=== PATIENT | female | born 1990 | race Caucasian/White ===

== ENCOUNTER 2017-11-27 18:19 | Inpatient (IN) | payer BC, OTHER ==
[~2017-11-27] VITALS: Ht 165.1 cm; Wt 51.7 kg
--- NOTE | 2017-11-27 21:30 | NUR ---
Pre-admission Assessment Patient is a 26-year old, female, seen at intake, AAOx4 and with no SOB noted. Patient with clear speech, appears flushed and intoxicated. Patient verbalized that she last injected Heroin 1 at 1930. Patient noted to be disheveled and is melancholic . Discussed with patient admission policies of the unit. Patient is coherent and able to respond to questions appropriatel. Pt is ambulatory with steady gait. Patient verbalized using mainly Heroin, Methamphetamine for the past 2 days only, Percocet one time only today and the last use of Percocet was 1 month ago. Patient also verbalized the she smokes Marijuana 0.5 gm daily for 2 months. Vital signs taken and as follows: FL=662/87, P=78, O2 sat on RA=97%, RR=16, T=98.4. Pt verbalized instructions and teachings regarding disposal of narcotic and other controlled home meds, unit protocols such as taking of vital signs Q4H and handling and disposal of contraband.
[2017-11-27] MEDS ORDERED: LOPERAMIDE HCL 2 MG CAPSULE PO PRN ×2 (22:15)
[2017-11-27] MEDS ORDERED: ONDANSETRON ODT 4 MG TAB.RAPDIS SL PRN (22:15)
[2017-11-27] MEDS ORDERED: CLONIDINE HCL 0.1 MG TABLET PO PRN (22:15)
[2017-11-27] MEDS ORDERED: MAGNESIUM HYDROXIDE 30 ML LIQUID UDC PO PRN (22:15)
[2017-11-27] MEDS ORDERED: HYDROXYZINE PAMOATE 25 MG CAPSULE PO PRN (22:15)
[2017-11-27] MEDS ORDERED: diphenhydrAMINE 50 MG CAPSULE PO PRN (22:15)
[2017-11-27] MEDS ORDERED: ACETAMINOPHEN 325 MG TABLET PO PRN (22:15)
[2017-11-27] MEDS ORDERED: MAG HYDROX/AL HYDROX/SIMETH 30 ML LIQUID UDC PO PRN (22:15)
[2017-11-27] MEDS ORDERED: BUPRENORPHINE HCL 2 MG TAB.SUBL SL PRN (22:15)
--- NOTE | 2017-11-27 22:15 | NUR ---
Admission note Pt is a 26 yo female, A+Ox4, presenting to [facility] for medically supervised Opiate withdrawal. Pt has also been using Marijuana and used Methamphetamine one time. Pt is 55 in height, and 114 LBS in weight. Pt has Allergies to Penicillin, is on Full code status, and on CCHO/Vegan diet. Substance use/History Pt states, I first started using drugs because I always seemed to get caught up in the wrong crowd. I also wanted to use it as a way to disconnect form everything. Its not that I wanted to but I just wanted to escape from everything. 1. Heroin IV Pt started using at the age of 22- Pt has been currently using 1gm/daily for the past 2 months Last dose was 0.6gm on 11-27-17 @1700 2. Percocet PO Pt started using at the age of 19- Pt has been currently using 30mg 1x/month for the past 2 months- Last dose was 30mg on 11-27-17 @1800 3. Marijuana Pt started using at the age of 16- Pt has been currently using 1gm/week for the past 2 months- Last dose was 0.2gm on 11-27-17 @1400 4. Methamphetamine by inhalation- Patient on used one time on 11-27-17 @1200 stating that she smoked some residue that was left in a pipe. Consequences of Substance Abuse Pt reports having no HX of Seizure, withdrawal induced delirium, withdrawal induced cardiac complications, overdose, nor blackouts. Pt expresses known consequences as, I have created a situation where it is hard for me to trust others and even harder for them to trust me, my job in particular. We have come under new management and I have been having outbursts and lashing out at work and I know that it is because of my drug use. I have been very emotionally volatile lately. My drug use has messed up relationships with friends family and significant others. I know that it effects my health especially since I am diabetic. I know that I needed to come in to treatment or else I would probably . Medical/Psychiatric conditions Pt has a primary care provider but cannot recall name at this time. 1. DM Type I- insulin dependent diagnosed since age 14 takes Basagal inulin QHS and Novolog ACHS depending on sliding scale. 2. Anxiety not formally diagnosed- no medications being taken for this condition. Psychiatric complications Pt has no HX of SI/SA/HI nor 5150 holds. Treatment History Pt reports spending 45 days @ [facility] detox in [place], [place] followed by 5.5 months @ [facility] followed by 6 months @ a sober living and continued sobriety for a total of 20 months from 2016- September 2017 until relapsing 2 months ago. This was the patients last time sober. Motivation Pt considers her Mother, Family and Boyfriend to be her support system. Pt states, I used to go to meeting all of the time but now since I have relapsed I have been embarrassed to go and tell me relapse story. I plan to go to treatment again after this detox. This time around I know that I have to go into it with a different mindset. I know that I have gotten sober in the past so I know that I am capable of doing it again. Pt appears moderately intoxicated but in stable condition. Pt has no apparent odor, appears well groomed, and clothing is in good condition. Pt is cooperative and compliant with all aspects of treatment. V/S WNL. Respirations even and unlabored. Will continue to monitor. Addendum: 11/28/17 at 0629 by SERGE FERREIRA LVN Basaglar insulin
[2017-11-27 22:42] LABS: *AMPHETAMINE, URINE POSITIVE (NEGATIVE); *BARBITURATE, URINE NEGATIVE (NEGATIVE); *CANNABINOID, URINE POSITIVE (NEGATIVE); *COCCAINE, URINE NEGATIVE (NEGATIVE); *OPIATE, URINE POSITIVE (NEGATIVE); *PHENCYCLIDINE SCREEN,URINE NEGATIVE (NEGATIVE)
[2017-11-27] MEDS ORDERED: DEXTROSE 50% 50 ML DISP.SYRIN IV PRN (23:00)
[2017-11-28] MEDS: BLOOD SUGAR DIAGNOSTIC 1 EACH STRIP VI SCH ×5 (00:20→21:08)
--- NOTE | 2017-11-28 00:30 | NUR ---
Blood Sugar and Insulin Refusal Patient's Blood Sugar was [id number] mg/dL. Patient refused insulin coverage of ordered Humulin R insulin. Per patient, she will speak with MD first because she is used to her own sliding of Novolog insulin. Per patient, she does not cover insulin with the said blood sugar value and she verbalized that she already injected herself with Basaglar 17 units SQ prior.
[2017-11-28 00:41] VITALS: BP 104/63
--- NOTE | 2017-11-28 00:41 | NUR ---
COWS Assessment COWS: 5. Pt noted with pulse 77, stuffy nose, stomach cramps, yawning, and anxiety. Respirations even and unlabored. Will continue to monitor.
[2017-11-28] MEDS ORDERED: HYDR28GE TP (01:42)
[2017-11-28] MEDS ORDERED: INSU100I26 SQ (01:42)
[2017-11-28] MEDS ORDERED: INSU3INS8 (01:42)
[2017-11-28 02:24] LABS: ALANINE AMINOTRANSFERASE 22 U/L (14-59); ALKALINE PHOSPHATASE 61 U/L (50-136); ASPARTATE AMINOTRANSFERASE 14 U/L (15-37); BILIRUBIN,TOTAL 0.6 mg/dL (0.2-1.0); CARBON DIOXIDE 33 mmol/L (21-32); CHLORIDE 102 mmol/L (98-107); CREATININE 0.7 mg/dL (0.6-1.3); GLUCOSE 189 mg/dL (74-106); MAGNESIUM 1.9 mg/dL (1.8-2.4); POTASSIUM 3.6 mmol/L (3.5-5.1); TOTAL PROTEIN, SERUM 6.8 g/dL (6.4-8.2); UREA NITROGEN, BLOOD 15 mg/dL (7-18)
[2017-11-28 02:31] LABS: THYROID STIMULATING HORMONE 0.671 mIU/mL (0.358-3.740)
[2017-11-28 02:45] LABS: BASOPHILS # (AUTO) 0.1 K/uL (0.0-8.0); BASOPHILS % (AUTO) 1.4 % (0.0-2.0); EOSINOPHILS # (AUTO) 0.2 K/uL (0.0-0.7); EOSINOPHILS % (AUTO) 2.7 % (0.0-7.0); HEMATOCRIT 38.1 % (31.2-41.9); HEMOGLOBIN 12.8 g/dL (10.9-14.3); MEAN CORPUSCULAR HEMOGLOBIN 30.1 uug (24.7-32.8); MEAN CORPUSCULAR HGB CONC 34 g/dL (32.3-35.6); MEAN CORPUSCULAR VOLUME 89.7 fL (75.5-95.3); MONOCYTES # (AUTO) 0.5 K/uL (2.0-10.0); MONOCYTES % (AUTO) 8.6 % (0.0-11.0); NEUTROPHILS # (AUTO) 3.3 K/uL (1.8-8.9); NEUTROPHILS % (AUTO) 54.3 % (38.5-71.5); PLATELET COUNT (AUTO) 222 K/uL (179-408); RED BLOOD CELL COUNT(AUTO) 4.25 MIL/uL (3.63-4.92)
[2017-11-28] MEDS ORDERED: LYSI500T PO (02:47)
[2017-11-28] MEDS ORDERED: [UNRECOGNIZED DRUG - CODE] PO (02:47)
[2017-11-28] MEDS ORDERED: MENT6OIN2 TP (02:47)
[2017-11-28] MEDS ORDERED: SUMA100T16 PO (02:47)
[2017-11-28] MEDS ORDERED: [UNRECOGNIZED DRUG - CODE] TP (02:47)
[2017-11-28 02:51] LABS: ETHANOL < 3 MG/DL (0-0)
--- NOTE | 2017-11-28 04:32 | NUR ---
V/S refused and COWS assessment deferred for sleep. Respirations even and unlabored. Will continue to monitor.
[2017-11-28 04:45] LABS: *URINE HCG, QUAL NEGATIVE (NEGATIVE)
--- NOTE | 2017-11-28 07:00 | NUR ---
End of shift note Newly admitted patient. Pt was continuously noted with anxiety, irritability, and fatigue. Pt remained in room for majority of shift except to get food from kitchen and to go smoke on smoking patio. Pt remained cooperative and compliant with all aspects of treatment. Pt was not given any PRN medications during shift. Pt is on PRN medications until further evaluation from MD. Pt slept for a total of 5 HRS. Last COWS: 5 @0041. Respirations even and unlabored. Will endorse to day shift nurse.
--- NOTE | 2017-11-28 07:40 | NUR ---
Start Of Shift Received 26 y/o F admitted last night 11/27/17 for medically supervised heroin withdrawal. empty bottles and snack wrappers on the counter and tables. Pt presents agitation, irritability, anxiety, restlessness, c/o generalized body aches, cold/hot flashes, chills, sweating, piloerection of the skin, pupil dilation. Encouraged pt to increase fluids as tolerated to facilitate in detox. Educated pt with plan of care and med regimen. Side rails upx2, bed in low position, and call light is within reach. Safety measures in place. Will continue to monitor.
--- NOTE | 2017-11-28 07:43 | NUR ---
Accucheck BS 43. Pt is a/ox4, orange juice given. notified. Will continue to monitor closely.
[2017-11-28 08:00] VITALS: BP 96/61
--- NOTE | 2017-11-28 08:30 | NUR ---
COWS 15 / PRN Pt presents agitation, irritability, anxiety, restlessness, c/o generalized body aches and back ache 7/10, cold/hot flashes, chills, sweating, stomach cramps, nausea, piloerection of the skin, pupil dilation, tremors are felt. Subutex 4 mg sl, robaxin 650 mg po, bentyl 20 mg po, ibuprofen 600 mg po, zofran 4mg sl, PRNS given. Will continue to monitor.
[2017-11-28] MEDS: IBUPROFEN 600 MG TABLET PO PRN (08:35)
[2017-11-28] MEDS: DICYCLOMINE HCL 20 MG TABLET PO PRN (08:35)
[2017-11-28] MEDS: METHOCARBAMOL 750 MG TABLET PO PRN (08:35)
--- NOTE | 2017-11-28 08:35 | NUR ---
PRN Bentyl 20 mg, robaxin 750 mg, zofran 4mg sl, subutex 4 mg sl PRNs given for pt presenting anxiety, agitation, irritability, generalized body aches and back ache 7/10, sweating, chills, cold/hot flashes, nausea, stomach cramps, and tremors are noted. Will continue to monitor and reassess.
[2017-11-28] MEDS ORDERED: TUBERCULIN,PURIF.PROT.DERIV. 5 TU/0.1 ML TEST ID ONE (09:00)
[2017-11-28] MEDS: MULTIVITAMINS,THERAPEUTIC TABLET PO SCH (09:16)
--- NOTE | 2017-11-28 09:35 | NUR ---
Reassessment Pt is laying in bed with eyes closed, asleep. Respirations even and unlabored. Safety measures in place. Will continue to monitor.
--- NOTE | 2017-11-28 12:00 | NUR ---
BS 120
[2017-11-28 12:30] VITALS: BP 108/72
[2017-11-28] MEDS ORDERED: SUMATRIPTAN SUCCINATE 50 MG PO PRN (12:30)
--- NOTE | 2017-11-28 12:30 | NUR ---
COWS 15 Pt is laying in bed, continues to present agitation, irritability, anxiety, restlessness, c/o generalized body aches and back ache, cold/hot flashes, chills, sweating, stomach cramps, nausea, piloerection of the skin, pupil dilation, tremors are felt. Refuses prns at this time.
[2017-11-28] MEDS ORDERED: 4 DAY TAPER BUPRENORPHINE -SERENITY PROTOCOL SL PRN (12:45)
[2017-11-28] MEDS ORDERED: SUMATRIPTAN SUCCINATE 50 MG TABLET PO PRN (13:30)
[2017-11-28] MEDS: BUPRENORPHINE HCL 2 MG TAB.SUBL SL SCH ×2 (15:23→21:08)
[2017-11-28 16:00] VITALS: BP 104/62
--- NOTE | 2017-11-28 16:00 | NUR ---
COWS 15 Pt continues to present agitation, irritability, anxiety, restlessness, c/o generalized body aches and back ache, cold/hot flashes, chills, sweating, stomach cramps, nausea, piloerection of the skin, pupil dilation, tremors noted. Scheduled subutex sl given and tolerated well. Will continue to monitor.
--- NOTE | 2017-11-28 16:30 | NUR ---
BS 103
--- NOTE | 2017-11-28 19:40 | NUR ---
End Of Shift Pt has been isolative in room throughout shift, in and out and sleep. Pt is highly irritable, agitated, anxious, restless. Last COWS 15. Bentyl, robaxin, zofran, ibuprofen, subutex PRNS given during shift and were effective. Pt 0730 BS were 43 and was given orange juice; 1130 BS 120, and 1640 BS 103. Safety measures in place.
[2017-11-28 20:00] VITALS: BP 105/71
--- NOTE | 2017-11-28 20:00 | NUR ---
Start of Shift Note Received a 26 y/o female px, admitted for medically supervised withdrawal from Opiates. She also used marijuana and methamphetamine. Px was placed on 4 day Subutex taper started today, 11/28/2017. Px has DM type 1. Last reported COWS 15 by AM shift nurse. During the rounds at 1999, zully is awake on bed in left side lying position. She appears anxious and depressed. She is disheveled, with long finger nails. Px has flat affect and poor eye contact. Px has only 1 bottle of water inside her room. She states that her anxiety is 7/10, has H/A of 6/10, stomach cramps. Px yawns at times and has piloerection. Bed is on the lowest position, side rails up 2x and call light within reach. Well continue to monitor
--- NOTE | 2017-11-28 20:00 | NUR ---
COWS 12 Upon assessment, She appears anxious and depressed. She states that her anxiety is 7/10, has H/A of 6/10, stomach cramps. Px yawns at times and has piloerection. AK= 60. will continue to monitor
--- NOTE | 2017-11-28 21:00 | NUR ---
Accucheck BG= 208 mg/dl. 4 "u" of Humulin R given SQ per sliding scale.
--- NOTE | 2017-11-28 21:07 | NUR ---
PRN Tylenol Px received 650 mg PO of Tylenol for H/A of 08/16. will continue to monitor
[2017-11-28] MEDS: INSULIN REGULAR, HUMAN 300 UNIT/3 ML VIAL SQ PRN (21:11)
[2017-11-28] MEDS: BASAGLAR KWIKPEN SQ SCH (21:12)
--- NOTE | 2017-11-28 22:10 | NUR ---
PRN Tylenol reassessment Px states that her H/A improved to 2-3/10. will continue to monitor
[2017-11-29] VITALS: BP 110/70
--- NOTE | 2017-11-29 | NUR ---
COWS 12 Upon assessment, zully is still awake and appears anxious and depressed. She states that her anxiety is still 7/10, stomach cramps. Px yawns at times and has piloerection. will continue to monitor
--- NOTE | 2017-11-29 01:50 | NUR ---
COMMUNICATION/CRITICAL LAB Patient woke up around 0145 complaining of irritability and dry mouth stating, "I feel like my blood sugar is high, can we check it?" One-time order for Accu-check result: 524mg/dL. notified; ordered to give Humulin R 10 units one-time. Addendum: 11/30/17 at 0320 by NATALIIA INFANTE LVN WRONG DATE, CORRECT DATE 11/30/17
[2017-11-29 04:00] VITALS: BP 99/66
--- NOTE | 2017-11-29 04:00 | NUR ---
COWS deferred COWS deferred due to the px is asleep, to assess if the px is awake per doctor's order. will continue to monitor
--- NOTE | 2017-11-29 07:05 | NUR ---
End of Shift Note During the shift at 2100, BG= 208 mg/dl. Px received Humulin R 4 u per sliding scale. At 2106, she received Tylenol 650 mg PO for H/A of 08/16. It was effective. Oral intake of 800 ml, voided 2x, No BM. Px slept for 6 hours. Last COWS 12. Bed on lowest position, side rails up 2x, and call light within reach. Px endorsed to AM shift nurse.
--- NOTE | 2017-11-29 07:20 | NUR ---
Start of Shift Last COWS 12 at 2400. Pt on 4 day Subutex taper. Pt guarded, flat affect, and depressed mood. Pt withdrawal symptoms include nausea, head ache, body aches, chills, fatigue, anhedonia, decreased appetite, dysphoria, warm skin to touch, and nausea. Pt slept 6 hours last night. Encouraged Pt to attend group therapy sessions to identify positive coping skills to maintain sobriety. Bed in lowest position. Side rails up x2. Call light functioning and within reach. All needs attended and met. Will continue to monitor for withdrawal symptoms.
[2017-11-29] MEDS: BLOOD SUGAR DIAGNOSTIC 1 EACH STRIP VI SCH ×4 (07:37→20:50)
[2017-11-29] MEDS: INSULIN REGULAR, HUMAN 300 UNIT/3 ML VIAL SQ PRN ×3 (07:38→16:47)
--- NOTE | 2017-11-29 07:40 | NUR ---
Pt had diabetes mellitus type I. AM blood glucose reading 43. Administered 300 ml orange juice with one packet of sugar. Charge nurse notified. Will recheck blood glucose in 30 minutes. Addendum: 11/29/17 at 0903 by Caro Arellano RN Pt has no symptoms of low blood glucose.
[2017-11-29 08:00] VITALS: BP 99/69
--- NOTE | 2017-11-29 08:00 | NUR ---
COWS 13- Pt withdrawal symptoms include nausea, head ache #5/10, body aches, chills, fatigue, anhedonia, poor appetite, dysphoria, disheveled, and odorous. Addendum: 11/29/17 at 1043 by Caro Arellano RN Pt also has moderate anxiety
[2017-11-29] MEDS ORDERED: BLOOD SUGAR DIAGNOSTIC 1 EACH STRIP VI ONE (08:30)
--- NOTE | 2017-11-29 08:30 | NUR ---
Reasses blood glucose now 118. Pt has no symptoms of low blood glucose.
[2017-11-29] MEDS: MULTIVITAMINS,THERAPEUTIC TABLET PO SCH (08:56)
[2017-11-29] MEDS: METHOCARBAMOL 750 MG TABLET PO PRN (08:56)
[2017-11-29] MEDS: IBUPROFEN 600 MG TABLET PO PRN ×2 (08:56→20:50)
[2017-11-29] MEDS ORDERED: BUPRENORPHINE HCL 2 MG TAB.SUBL SL SCH (09:00)
--- NOTE | 2017-11-29 09:03 | NUR ---
PRN ZOFRAN 4 MG SL FOR NAUSEA, NO EMESIS PRN IBUPROFEN 600 MG PO FOR HEADACHE #5/10. PRN ROBAXIN 750 MG PO FOR MODERATE BODY ACHES.
--- NOTE | 2017-11-29 10:00 | NUR ---
Reassess Zofran- Pt reports nausea resolved and she is able to eat snacks Reassess Ibuprofen- Pt reports headache #3/10 and tolerable. Reassess Robaxin- Pt reports body aches improved.
[2017-11-29 12:00] VITALS: BP 98/49
--- NOTE | 2017-11-29 12:05 | NUR ---
COWS 12- Pt withdrawal symptoms include head ache #3/10, minimal nausea, anxiety, moderate body aches, malaise, chills, poor appetite, she is only eating snacks, anhedonia, dysphoria, disheveled, and odorous. Room is cluttered with wrappers, empty water bottles, clothes and used linens. Drinks and food spilled on floor, in her bed and on her tray
--- NOTE | 2017-11-29 14:24 | NUR ---
Therapist prompted client to attend group therapy.
[2017-11-29] MEDS: BUPRENORPHINE HCL 2 MG TAB.SUBL SL SCH ×2 (14:41→20:50)
[2017-11-29] MEDS ORDERED: INSULIN REGULAR, HUMAN 300 UNIT/3 ML VIAL SQ PRN (15:45)
[2017-11-29 16:18] VITALS: BP 98/62
--- NOTE | 2017-11-29 16:19 | NUR ---
COWS 13- Pt withdrawal symptoms include moderate anxiety, nasal congestion, generalized body aches, malaise, chills, poor appetite, , her affect is flat, anhedonia, dysphoria and depressed mood. She remains disheveled, and odorous. Room is cluttered with wrappers and empty water bottles.
--- NOTE | 2017-11-29 18:29 | NUR ---
End of Shift Last COWS 13 at 1600. Pt on 4 day Subutex taper. Pt affect is guarded, anhedonia, dysphoria ,flat, and depressed mood. Pt withdrawal symptoms include nausea, head ache, generalized body aches, sweats, moist skin, chills, malaise, fine tremors, poor appetite, and intermittent nausea. Room is cluttered with wrappers and empty water bottles. Drinks and food spilled on floor, in her bed and on her tray. Pt is type I diabetic. 0730 blood glucose low at 43. Treated with OJ and sugar. Afternoon and PM blood glucose elevated and managed with insulin per slide scale. PRN given today; Zofran, Ibuprofen, Robaxin. Encouraged Pt to attend group therapy sessions to identify positive coping skills to maintain sobriety. Pt was not well enough to participate in group therapy today. PO Fluids 1000 ml, Voids x3, no BM. Fall and Seizure Precautions. Bed in lowest position. Side rails up x2. Call light functioning and within reach. All needs attended and met. Will continue to monitor for withdrawal symptoms. Endorsed to PM shift.
--- NOTE | 2017-11-29 19:03 | NUR ---
START OF SHIFT Patient is a 26-year-old female admitted on 11/27/17 for opiate withdrawal. Patient is currently on a 4-day Subutex taper, tolerating well; today is second day of taper, will end on 12/01/17. Patients last COWS was 13 per endorsement. Patient received the following PRN medications today: Zofran SL, Motrin, and Robaxin. PRNs were noted to be effective. Upon assessment, patient appears depressed and annoyed. Patient is alert and oriented x4, complaining of headache stating, earlier I felt like my sugar was low, now I have a headache. When asked about group attendance, patient replied, Martha been requesting my make-up and shampoo since I got here and no one has brought it to me. I havent even gone down to smoke because I dont feel comfortable without my belongings. 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 Per endorsement, patient did not eat dinner. When asked, patient stated, I didnt eat it because it was soggy and gross. SN encouraged patient to verbalize any requests for meals, within reason, but patient stated, I dont want to complain, Im trying to be grateful. Im vegan, I know there probably arent many options for me. SN encouraged patient to continue with oral fluids and snacks. Patient is on fall and seizure precautions with past seizure history. Safety measures in place, side rails up x2, bed locked in low position, call light within reach. Will continue to monitor.
[2017-11-29 20:00] VITALS: BP 102/61
--- NOTE | 2017-11-29 20:00 | NUR ---
COWS 14 Patient is visibly agitated and anxious at this time. Patient reports chills, sweats, intermittent nausea, and piloerection. Current COWS score is 14.
--- NOTE | 2017-11-29 20:50 | NUR ---
PRN MOTRIN, HS BASAGLAR NOT GIVEN Patient reports headache from feeling low blood sugar; PRN Motrin 600mg given PO. Bedtime dose of Basaglar held since patient did not eat dinner; charge nurse Janet notified. Accu-check at 2049 result: 77mg/dL. No regular insulin given per sliding scale. Safety measures in place, side rails up x2, bed locked in low position, call light within reach. Will monitor for effectiveness of PRN med.
[2017-11-29] MEDS: BASAGLAR KWIKPEN SQ SCH (20:57)
--- NOTE | 2017-11-29 21:50 | NUR ---
PRN MOTRIN REASSESSMENT Patient reports that headache has improved; PRN Motrin effective. Safety measures in place, side rails up x2, bed locked in low position, call light within reach. Will continue to monitor.
[2017-11-30] VITALS: BP 98/56
--- NOTE | 2017-11-30 | NUR ---
COWS DEFERRED COWS deferred at this time due to patient sleeping; to be assessed and scored while patient is awake. Safety measures in place, side rails up x2, bed locked in low position, call light within reach. Will continue to monitor.
[2017-11-30] MEDS ORDERED: BLOOD SUGAR DIAGNOSTIC 1 EACH STRIP VI ONE ×3 (01:45→06:00)
--- NOTE | 2017-11-30 01:45 | NUR ---
COWS 14 Patient woke up feeling irritable, anxious, restless, intermittent nausea, and on and off piloerection. Current COWS is 14.
--- NOTE | 2017-11-30 01:50 | NUR ---
MD COMMUNICATION/CRITICAL LAB Patient woke up around 0145 complaining of irritability and dry mouth stating, "I feel like my blood sugar is high, can we check it?" One-time order for Accu-check result: 524mg/dL. MD notified; MD ordered to give Humulin R 10 units one-time.
[2017-11-30] MEDS ORDERED: INSULIN REGULAR, HUMAN 300 UNIT/3 ML VIAL SQ ONE (02:05)
--- NOTE | 2017-11-30 03:32 | NUR ---
BLOOD SUGAR 407mg/dL Accu-check result at 0323: 414mg/dL Accu-check result at 0332: 407mg/dL Vitals within normal limits, respirations even and unlabored. Safety measures in place, side rails up x2, bed locked in low position, call light within reach. Will continue to monitor.
[2017-11-30 04:00] VITALS: BP 102/64
--- NOTE | 2017-11-30 04:00 | NUR ---
COWS DEFERRED COWS deferred at this time due to patient sleeping; to be assessed and scored while patient is awake. Respirations even and unlabored. Safety measures in place, side rails up x2, bed locked in low position, call light within reach. Will continue to monitor.
--- NOTE | 2017-11-30 06:10 | NUR ---
BLOOD SUGAR 76mg/dL Patient sleeping at this time. Accu-check result: 76mg/dL. Respirations even and unlabored, safety measures in place, call light within reach. Patient decided to drink 8oz of orange juice upon hearing that her BS was 76. Will continue to monitor.
--- NOTE | 2017-11-30 07:05 | NUR ---
END OF SHIFT Patient is a 26-year-old female admitted on 11/27/17 for opiate withdrawal. Patient is currently on a 4-day Subutex taper, tolerating well; today will be day 3 of taper, scheduled to end on 12/01/17. Patients last COWS was 14. Patient did not eat dinner last night and refused snacks at the start of shift. Per MD order regarding kwikpen long-acting insulin, SN held HS dose. However, patient later had a snack before going to bed. Around 0140 patient woke complaining of feeling that she had elevated blood glucose. One-time Accu-check at 0148 resulted in 524mg/dL critical value; MD was notified and pop sup was later notified. Per MD order, 10 units of regular insulin was subcutaneous at 0224. Blood glucose was re-checked at 0332, result: 407mg/dL. Blood sugar checked again at 0610, result: 76mg/dL. Patient received only PRN Motrin last night for headache, noted to be effective. Patient slept for 6 hours, total intake of 1,400mL, void x3, stool x0. Patient is on fall and seizure precautions with past seizure history. Safety measures in place, side rails up x2, bed locked in low position, call light within reach. Will endorse to day shift.
[2017-11-30] MEDS: BLOOD SUGAR DIAGNOSTIC 1 EACH STRIP VI SCH ×4 (07:30→21:58)
--- NOTE | 2017-11-30 07:30 | NUR ---
BS 74.
--- NOTE | 2017-11-30 07:59 | NUR ---
Start Of Shift / COWS 14 Received 26 y/o F admitted on 11/27/17 for medically supervised heroin withdrawal. Pt continues on a 4 day subutex taper that started on 11/28/17 and tolerating well. Pt has a flat affect, drowsy, presents agitation, irritability, c/o anxiety, restlessness, generalized body aches and back ache 6/10, cold/hot flashes, chills, sweating, intermittent piloerection of the skin, pupil larger than normal and tremors are noted. Encouraged pt to increase fluids as tolerated to facilitate in detox. Educated pt with plan of care and med regimen. Side rails upx2, bed in low position, and call light is within reach. Safety measures in place. Will continue to monitor.
[2017-11-30 08:30] VITALS: BP 96/62
[2017-11-30] MEDS: BUPRENORPHINE HCL 2 MG TAB.SUBL SL SCH ×3 (09:06→21:55)
[2017-11-30] MEDS: METHOCARBAMOL 750 MG TABLET PO PRN (09:06)
[2017-11-30] MEDS: DICYCLOMINE HCL 20 MG TABLET PO PRN (09:06)
[2017-11-30] MEDS: MULTIVITAMINS,THERAPEUTIC TABLET PO SCH (09:06)
--- NOTE | 2017-11-30 09:06 | NUR ---
PRN Robaxin 750 mg po and bentyl 20 mg po prns given for stomach cramps, muscle cramps, generalized body aches.
--- NOTE | 2017-11-30 10:06 | NUR ---
Reassessment Pt appears calm, and is laying in bed, tv on, with eyes closed, appears to be sleeping. Safety measures in place.
--- NOTE | 2017-11-30 12:00 | NUR ---
BS 238; 4 units of humulin R given per sliding scale.
--- NOTE | 2017-11-30 12:00 | NUR ---
COWS 14 Pt is isolative in room, states she won't come out until her make-up is brought up from storage. Pt is agitated, irritable, c/o anxiety, restlessness, generalized body aches and back ache 4/10, intermittent cold/hot flashes, chills, sweating, intermittent piloerection of the skin, pupils larger than normal and tremors are noted.
[2017-11-30] MEDS: INSULIN REGULAR, HUMAN 300 UNIT/3 ML VIAL SQ PRN ×2 (12:38→17:42)
[2017-11-30 12:41] VITALS: BP 90/61
[2017-11-30 13:06] LABS: HEPATITIS B SURFACE AG Negative (Negative)
--- NOTE | 2017-11-30 14:08 | NUR ---
Therapist prompted client to attend all group therapy sessions.
--- NOTE | 2017-11-30 16:00 | NUR ---
COWS 14 Pt continues to be isolative in room, agitated, irritable, c/o anxiety, restlessness, generalized body aches and back ache 4/10, intermittent cold/hot flashes, chills, sweating, intermittent piloerection of the skin, pupils larger than normal and tremors are noted. Subutex was given and tolerated well. Will continue to monitor.
[2017-11-30 16:30] VITALS: BP 97/61
--- NOTE | 2017-11-30 17:30 | NUR ---
BS 216; 4 units of humulin R given.
--- NOTE | 2017-11-30 19:17 | NUR ---
End Of Shift Pt has been isolative in room throughout shift. Pt has been irritable, upset and agitated mostly for not getting to have her makeup bag on unit. BS 72 @0730, BS 238 @1130 4 units humulin R given per sliding scale, BS 216 @1630 4 units humulin R given. Last COWS 13 @1600. Robaxin and bentyl prn given and effective. Pt is a diabetic vegan; pt refused to consume meals yesterday diet consult has been ordered. Pt consumed 75/50/50% of meals. Safety measures in place.
--- NOTE | 2017-11-30 19:30 | NUR ---
START OF SHIFT Received 26 year old female patient admitted on 11/27/17 for Opiate withdrawal. Pt is alert and oriented x4. She has PMHx of DM type 1. Pt noted to be disheveled, anxious, agitated, irritable, angry, and restless, with poor eye contact and withdrawn behavior. She complains of not receiving her toiletries and speaks in an angry tone. She is currently receiving a 4 day Subutex taper and tolerating well. Per endorsement, last BS at 1600 was 216. Pt received 4 units. She received PRN Robaxin and Bentyl. Last COWS:13 at 1600. Breathing is even and unlabored, safety measures in place. Will continue to monitor.
[2017-11-30 20:00] VITALS: BP 92/60
--- NOTE | 2017-11-30 20:00 | NUR ---
COWS Pt complains of anxiety, agitation, irritability, restlessness,and body aches. COWS:13 prior to 2100 medication administration. Safety measures in place. Will continue to monitor.
--- NOTE | 2017-11-30 21:58 | NUR ---
ACCU CHECK Pt's blood emqxy=953. Pt with no sliding scale for bedtime. Pt stated " I wouldn't give myself any insulin with this blood sugar" Dr. Morales notified with no new orders. Pt denies signs and symptoms of hypo/hyperglycemia. Will continue to monitor.
[2017-11-30] MEDS: BASAGLAR KWIKPEN SQ SCH (22:00)
--- NOTE | 2017-12-01 | NUR ---
VITALS REFUSED, COWS DEFERRED 0000 vitals refused. COWS deferred d/t pt lying in bed with eyes closed noted to be asleep. Breathing is even and unlabored, safety measures in place. Will continue to monitor.
--- NOTE | 2017-12-01 04:00 | NUR ---
VITALS REFUSED, COWS DEFERRED 0400 vitals refused. COWS deferred d/t pt lying in bed with eyes closed noted to be asleep. Breathing is even and unlabored, safety measures in place. Will continue to monitor.
--- NOTE | 2017-12-01 07:14 | NUR ---
END OF SHIFT Pt is a 26 year old female patient admitted on 11/27/17 for Opiate withdrawal. She remains alert and oriented x4. She has PMHx of DM type 1. Pt was noted to be disheveled, anxious, agitated, irritable, angry, emotional and restless during the shift. She continues on a 4 day Subutex taper and tolerating well. She did not receive or request PRN medications. She slept a total of 7 hrs, Intake: 500 mL, Void: x1, BM:0, Last COWS:14 at 2000. Last Accu check was 245. Breathing is even and unlabored, safety measures in place. Endorsed to AM shift.
[2017-12-01] MEDS: BLOOD SUGAR DIAGNOSTIC 1 EACH STRIP VI SCH ×4 (07:54→21:46)
--- NOTE | 2017-12-01 07:58 | NUR ---
START OF SHIFT NOTE Received report from night nurse, 26 year old female admitted for Heroin withdrawal and continues with Subutex taper tolerating well. Patient has a PMH of DM type 1. Per endorsement patient received no PRN'S last blood sugar was 245mg/dL, slept for 7 hours. Received patient asleep responsive to verbal and tactile stimuli. Breathing normal no SOB noted. Skin intact warm and dry to touch. All safety measures in place. Will cont to monitor.
[2017-12-01 08:00] VITALS: BP 115/74
[2017-12-01] MEDS: MULTIVITAMINS,THERAPEUTIC TABLET PO SCH (08:02)
--- NOTE | 2017-12-01 08:03 | NUR ---
COWS ASSESSMENT COWS score noted 13, patient presented with poor eye contact, anxiety, agitation, fatigue, patient was given her scheduled medications. Will cont to monitor.
[2017-12-01] MEDS: INSULIN REGULAR, HUMAN 300 UNIT/3 ML VIAL SQ PRN ×3 (08:47→17:21)
--- NOTE | 2017-12-01 08:47 | NUR ---
BLOOD SUGAR RESULTS Patient BS noted 286mg/dl, 6 units of regular insulin was given as per sliding scale. Will cont to monitor.
[2017-12-01] MEDS ORDERED: BUPRENORPHINE HCL 2 MG TAB.SUBL SL SCH (09:00)
--- NOTE | 2017-12-01 11:57 | NUR ---
BLOOD SUGAR RESULTS Patient BS noted 236mg/dl, 4 units of regular insulin was given as per sliding scale. Will cont to monitor.
[2017-12-01 12:00] VITALS: BP 104/62
--- NOTE | 2017-12-01 12:00 | NUR ---
COWS ASSESSMENT COWS score noted 10, patient continues to presented s/s of anxiety, agitation, fatigue, encourage patient to attend groups activities for distraction, patient verbalized understanding. Will cont to monitor.
--- NOTE | 2017-12-01 14:35 | NUR ---
Therapist prompted client to attend all group therapy sessions.
[2017-12-01] MEDS ORDERED: CLON0.1T14 PO (15:10)
[2017-12-01] MEDS ORDERED: DICY20TA28 PO (15:10)
[2017-12-01] MEDS ORDERED: METH-406 PO (15:10)
[2017-12-01] MEDS ORDERED: HYDR-3895 PO (15:10)
[2017-12-01 16:00] VITALS: BP 117/74
--- NOTE | 2017-12-01 16:00 | NUR ---
COWS ASSESSMENT COWS score noted 6, patient continues to presented s/s upset mood angry affect, anxiety, agitation, encourage patient to attend groups activities for distraction, patient verbalized understanding. Will cont to monitor.
--- NOTE | 2017-12-01 17:17 | NUR ---
BLOOD SUGAR RESULTS Patient BS noted 196mg/dl, 3 units of regular insulin was given as per sliding scale. Will cont to monitor.
--- NOTE | 2017-12-01 18:35 | NUR ---
Patient seen for dietary complications and preferences. She is an OOC diabetic and follows a vegan diet. 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 Her appetite is fair but well-tolerated. Diabetic/vegan education was provided and she verbalized understanding. Adherence is hopeful at this time. Addendum: 12/01/17 at [address] Amended: Links added.
--- NOTE | 2017-12-01 19:14 | NUR ---
END OF SHIFT NOTE Gave report to night nurse, patient completed her Ativan taper and Subutex taper tolerated well. During shift patient did not receive any PRN'S. Patient stayed in her room most of the shift been isolative from peers. Encourage patient to attend groups activities to learn new coping skills, patient verbalized understanding. Last COWS- 7 @ 1600. Patient set for discharge in AM. Encouraged patient to increased PO fluids as tolerated. All safety measures in place. Patient endorsed to night nurse in stable condition.
[2017-12-01 20:00] VITALS: BP 103/65
--- NOTE | 2017-12-01 20:00 | NUR ---
Start of Shift Patient is avoidant with conversation. Patient also noted to be melancholic and in depressed mood. Patient appears anxious and verbalized: "When I'm alone I think a lot. Many things are going on in my mind." Educated patient with Progressive Muscle Relaxation and breathing techniques. Patient is receptive with instructions. Patient appears unkempt and with tremors noted. Fall, universal, seizure and safety prec in place. Call light within reach. Latest COWS=7. Will continue to monitor.
[2017-12-01] MEDS: BASAGLAR KWIKPEN SQ SCH (21:45)
--- NOTE | 2017-12-01 21:50 | NUR ---
Accu Check Blood Gtouw=782 mg/dL. No coverage ordered for HS. Administered Basaglar insulin 17 units SQ HS as ordered.
[2017-12-02] VITALS: BP 108/63
--- NOTE | 2017-12-02 | NUR ---
COWS=6 Patient has intermittent nausea, continues to have a melancholic demeanor. Patient also is noted to be avoiding conversation and has no eye contact.
[2017-12-02 04:00] VITALS: BP 110/74
--- NOTE | 2017-12-02 04:00 | NUR ---
COWS=6 Patient continues to be isolative, melancholic and in depressed mood. Patient with intermittent anxiety and noted to have tremors.
--- NOTE | 2017-12-02 07:17 | NUR ---
End of Shift Patient continues to be melancholic and in depressed mood. Patient still observed to be isolative and with poor eye contact. Patient noted with tremors and intermittent generalized muscle pain, currently at 3/10. Fall, universal, seizure and safety prec in place. Call light within reach. Latest COWS=6, slept for 7 hours. Endorsed to AM shift nurse for continuity of care.
[2017-12-02] MEDS: BLOOD SUGAR DIAGNOSTIC 1 EACH STRIP VI SCH ×2 (07:30→09:14)
--- NOTE | 2017-12-02 07:30 | NUR ---
Start of Shift Note. Pt. is a 26 y/o female admitted for the medically managed withdrawal from Opiates (Heroin, Percocet). Pt. was placed on a 4 day Subutex taper to manage his withdrawal symptoms. Pt. completed her taper medications yesterday 12/01/2017. Pt. is set to be discharge this morning to [facility]. Endorse from previous shift pt. presented with anxiety, and restlessness during the previous shift. Last COWS 6. Received pt. in room. Pt. up and putting on make up. Pt. reports feeling ready to go. Educated on discharge plan. Pt. verbalize understanding. Safety measures in place. Will continue to monitor pt. for safety.
[2017-12-02] MEDS: MULTIVITAMINS,THERAPEUTIC TABLET PO SCH (07:57)
[2017-12-02 08:00] VITALS: BP 95/62
[2017-12-02] MEDS: INSULIN REGULAR, HUMAN 300 UNIT/3 ML VIAL SQ PRN (09:17)
--- NOTE | 2017-12-02 09:42 | NUR ---
Discharge Note: Pt. in stable condition with no signs of acute distress noted. Pt. is A/O X 4 and denies SI, HI, VH, and AH. Pt. being discharge per MD order with Rx to [facility] via [employer] transportation. Pt. educated on D/C plan and pt. verbalize understanding. Pt.'s V/S within normal limits. Last COWS of 5. All D/C paper work signed and placed in blue and black bag. All pt.'s belongings including home medications and medications from cassette placed in blue and black D/C bag. Pt. escorted to the lobby at this time by staff.
== END 2017-12-02 09:42 | DRG 895 ==
LOC: SRC 20:30
PROVIDERS: ADMIT Family Medicine Addiction Medicine; ATTEND Family Medicine Addiction Medicine
PROC: HZ2ZZZZ Detoxification Services for Substance Abuse Treatment (ICD-10-PCS; principal; 2017-11-27)
PROC: HZ31ZZZ Individual Counseling for Substance Abuse Treatment, Behavioral (ICD-10-PCS; 2017-11-29)
DX: F11.23 Opioid dependence with withdrawal (principal); F17.210 Nicotine dependence, cigarettes, uncomplicated; F41.1 Generalized anxiety disorder; F15.229 Other stimulant dependence with intoxication, unspecified; E10.9 Type 1 diabetes mellitus without complications; Z79.4 Long term (current) use of insulin; F12.10 Cannabis abuse, uncomplicated
CPT/HCPCS: 36415; 80307; 80324; 80349; 80361; 83735; 84443; 84703; 85025; 86592; 86705; 86803; 87340; 87806; G0480; J1815; Q0162; Q0163